=== PATIENT | male | born 1995 | race Caucasian/White ===

== ENCOUNTER 2017-06-16 05:22 | Emergency (ER) | payer BC, OTHER ==
[~2017-06-16] VITALS: Ht 175.3 cm; Wt 77.0 kg
[2017-06-16 05:29] VITALS: TEMP 36.4; Ht 175.3 cm; Wt 77.0 kg
[2017-06-16 05:34] VITALS: O2SAT 100
--- NOTE | 2017-06-16 05:39 | EMERGENCY ROOM VISIT NOTE ---
History Report prepared by Héctor: Nakul Matias Under the Supervision of: Dr. Ita Bland D.O. First contact with patient: 05:26 Stated Complaint: ALCOHOL History of Present Illness The patient is a 22 year old male who presents to the Emergency Room for an alcohol overdose occurring prior to arrival. Per the EMS, the patient was found asleep on someone's lawn, and the police picked him up. The patient states that he drank 5 or 6 beers, and he was at his friend's apartment earlier in the night. He states that he does not have any medical problems. The history is limited secondary to intoxication. Source of History: patient History Limited By: intoxication Onset: prior to arrival Position: other (global) Quality: other (alcohol overdose) Review of Systems See HPI for pertinent positives & negatives. A total of 10 systems reviewed and were otherwise negative. Past Medical & Surgical Limited secondary to intoxication Family History Limited secondary to intoxication Social History Smoking Status: Never Smoker Alcohol Use: heavy Housing Status: lives with roommate Occupation Status: [employer] student Current/Historical Medications Unable to Obtain Active Prescriptions or Reported Meds Physical Exam Vital Signs Date Time Temp Pulse Resp B/P (MAP) Pulse Ox O2 Delivery O2 Flow Rate FiO2 06/16/17 11:19 100 18 107/85 98 Room Air 06/16/17 10:24 69 18 124/73 97 Room Air 06/16/17 09:15 61 18 104/62 97 Room Air 06/16/17 07:33 61 16 95/58 99 Room Air 06/16/17 06:53 111/68 06/16/17 06:52 64 16 94 06/16/17 06:07 58 16 96 06/16/17 05:45 63 06/16/17 05:34 100 Room Air 06/16/17 05:29 36.4 61 16 146/80 99 Room Air Physical Exam General: Smells of alcohol. Stuttering HEENT: Head - normocephalic and atraumatic Pupils are equal, round, and reactive to light. Extraocular eye muscles are intact, and sclera are anicteric. Nose - moist nasal mucosa without discharge. Mouth - moist buccal mucosa. Oropharynx is nonerythematous and there is no tonsillar exudate or edema noted. Neck: Supple; no JVD, nuchal rigidity, cervical lymphadenopathy,. Heart: Tachycardic rate and regular rhythm. There is a normal S1 and S2 with no murmurs, clicks, or gallops appreciated. Lungs: Clear to auscultation bilaterally with no wheezes, rales, or rhonchi. Abdomen: Soft, completely nontender, nondistended, with good bowel sounds. There are no palpable pulsatile masses or hepatosplenomegaly. There is no guarding, rigidity, or rebound noted. Extremities: There are superficial abrasions about his ankles. No evidence of cyanosis, clubbing, or edema. There are easily palpable peripheral pulses. Skin: Pale, warm and dry with good turgor and no rashes. Medical Decision & Procedures Laboratory Results 06/16/17 05:30 Test 06/16/17 05:30 Anion Gap 6.0 mmol/L (3-11) Est Creatinine Clear Calc Drug Dose 128.5 ml/min Estimated GFR () 139.1 Estimated GFR (Non- 120.0 BUN/Creatinine Ratio 14.0 (10-20) Calcium Level 8.5 mg/dl (8.5-10.1) Ethyl Alcohol mg/dL 272.0 mg/dl (0-3) Laboratory results per my review. ED Course 0526: Past medical records reviewed. The patient was evaluated in room B4. A complete history and physical exam was performed. The patient was placed in the prone position to avoid aspiration. He was observing the cardiac/vascular sonographer and pulse oximeter. Laboratory studies were drawn as above. 0615: The patient is sleeping at this time and is hemodynamically stable. 0700: This patient was signed out to Dr. Pandya at the change of shift awaiting sobriety. Medical Decision The patient is a 22 year old male who presents to the ED for an alcohol overdose. Differential diagnosis includes alcohol overdose, drug intoxication, hypoglycemia, and head injury. Lab results showed: Alcohol of 272, normal renal function, and normal glucose. This is a 22-year-old male patient who consumed too much alcohol this evening. He had no outward signs of trauma. He had no complaints upon presentation to the emergency department. Blood alcohol level was significantly elevated and would take some time for sobering up. The case was signed out to Dr. Pandya at change of shift. Medication Reconcilliation Current Medication List: was personally reviewed by me Blood Pressure Screening Patient's blood pressure: Elevated blood pressure Blood pressure disposition: Elevated BP felt to be situational Impression Primary Impression: Alcohol overdose Scribe Attestation The scribe's documentation has been prepared under my direction and personally reviewed by me in its entirety. I confirm that the note above accurately reflects all work, treatment, procedures, and medical decision making performed by me. Departure Information Dispostion Still a Patient Prescriptions Unable to Obtain Active Prescriptions or Reported Meds Referrals No Doctor, Assigned (PCP) Problem Qualifiers Primary Impression: Alcohol overdose Encounter type: initial encounter Injury intent: accidental or unintentional Qualified Codes: T51.91XA - Toxic effect of unspecified alcohol , accidental (unintentional), initial encounter
[2017-06-16 06:04] LABS: CALCIUM 8.5 mg/dl (8.5-10.1); CREATININE 0.91 mg/dl (0.60-1.40); POTASSIUM 3.7 mmol/L (3.5-5.1)
[2017-06-16 11:19] VITALS: BP 107/85; PULSE 100; O2SAT 98
--- NOTE | 2017-06-16 11:35 | EMERGENCY ROOM VISIT NOTE ---
ED Visit Note First contact with patient: 07:53 I assumed care at the change of shift, Dr. Bland had been the initial attending. The patient presented with an alcohol overdose. Alcohol level was around 270. The patient was allowed to sleep through the morning hours. He is now awake and interactive. He is drinking fluids. He has no complaints of a headache or vomiting. No abdominal pain or shortness of breath. He realizes he had too much alcohol to drink last evening. He is stable for discharge. He was told to avoid alcohol in excess.
== END 2017-06-16 12:04 | disposition home or self-care (01) ==
LOC: EDBD 05:22 → C.EDB 05:23
DX: T51.91XA Toxic effect of unspecified alcohol, accidental (unintentional), initial encounter (principal)